=== PATIENT | female | born 1995 | race Caucasian/White ===

== ENCOUNTER 2017-03-16 13:56 | Emergency (ER) | payer MEDICAID ==
[~2017-03-16] VITALS: Ht 154.9 cm; Wt 52.6 kg
[~2017-03-16 13:56] MED LIST: COLACE100 MG PO; FERROUS SULFAT325 M1 PO; LAN-O-SOOTHE7 GM TOP; MOTRIN800 MG PO; NORCO 325-5 MG1 TAB PO; PRENATAL PLUS I1 TAB PO; PRILOSEC20 MG PO
[2017-03-21] MEDS ORDERED: NEURONTIN300 MG PO (03:02)
[2017-03-21] MEDS ORDERED: NORCO 325-5 MG1 TAB PO (03:02)
[2017-03-21] MEDS ORDERED: ZOFRAN ODT4 MG PO (08:07)
[2017-03-21] MEDS ORDERED: MOBIC15 MG PO (08:07)
[2017-03-22] MEDS ORDERED: MOBIC15 MG PO (08:58)
== END 2017-03-16 16:25 | disposition short-term general hospital (02) ==
LOC: ER 13:56
DX: R10.11 Right upper quadrant pain (principal); R11.2 Nausea with vomiting, unspecified
CPT/HCPCS: J1885; J2175; J2405